=== PATIENT | male | born 1945 | race Caucasian/White ===

== ENCOUNTER 2017-10-09 09:43 | Emergency (ER) | payer MEDICARE ==
[2017-10-09 11:42] VITALS: BP 143/77
--- NOTE | 2017-10-09 12:15 | ED ---
Respiratory - HPI Summary HPI Summary: 72 yr old male with nasal congestion, cough, fever, chills, muscle aches. He has a friend and has been around kids that have influenza. He denies SOB, CP. No other complaints. - History of Current Complaint Chief Complaint: UCRespiratory Stated Complaint: FLU LIKE SYMP Time Seen by Provider: 10/09/17 12:00 Pain Intensity: 4 - Allergy/Home Medications Allergies/Adverse Reactions: Allergies Allergy/AdvReac Type Severity Reaction Status Date / Time No Known Allergies Allergy Verified 10/09/17 11:33 Home Medications: Home Medications Aspirin [Goodsense Aspirin] 325 mg PO PRN 10/09/17 [History] Ibuprofen 600 mg PO PRN 10/09/17 [History Confirmed 10/09/17] PMH/Surg Hx/FS Hx/Imm Hx - Surgical History Surgery Procedure, Year, and Place: SPLENECTOMY Infectious Disease History: Yes Infectious Disease History: Reports: Hx Shingles - A 5YO Denies: Traveled Outside the [place] in Last 30 Days - Social History Alcohol Use: Occasionally Substance Use Type: Reports: None Smoking Status (MU): Former Smoker Review of Systems Positive: Fever, Chills, Fatigue Positive: Nasal Discharge Positive: Cough Positive: Myalgia Negative: Headache All Other Systems Reviewed And Are Negative: Yes Physical Exam Triage Information Reviewed: Yes Vital Signs On Initial Exam: Initial Vitals Temp Pulse Resp BP Pulse Ox 101.9 F 102 18 143/77 93 10/09/17 11:37 10/09/17 11:37 10/09/17 11:37 10/09/17 11:37 10/09/17 11:37 Vital Signs Reviewed: Yes Appearance: Positive: Well-Appearing, No Pain Distress Skin: Positive: Warm, Skin Color Reflects Adequate Perfusion Head/Face: Positive: Normal Head/Face Inspection Eyes: Positive: EOMI ENT: Positive: Pharynx normal, Nasal congestion, TMs normal Neck: Positive: Nontender Respiratory/Lung Sounds: Positive: Clear to Auscultation, Breath Sounds Present Cardiovascular: Positive: RRR. Negative: Murmur Abdomen Description: Positive: Nontender Musculoskeletal: Positive: Strength/ROM Intact Neurological: Positive: Sensory/Motor Intact, Alert, Oriented to Person Place, Time, CN Intact II-III Psychiatric: Positive: Normal - Bill Coma Scale Best Eye Response: 4 - Spontaneous Best Motor Response: 6 - Obeys Commands Best Verbal Response: 5 - Oriented Coma Scale Total: 15 Diagnostics - Vital Signs Vital Signs Temp Pulse Resp BP Pulse Ox 10/09/17 11:37 101.9 F 102 18 143/77 93 - Laboratory Lab Results: Lab Results 10/09/17 Range/Units 11:38 Influenza A (Rapid) Negative (Negative) Influenza B (Rapid) Negative (Negative) Lab Statement: Any lab studies that have been ordered have been reviewed, and results considered in the medical decision making process. Disposition - Course Course Of Treatment: 72 yr old with influenza symptoms. Rx with tamiflu. - Diagnoses Provider Diagnoses: Influenza, Hypertension Discharge - Discharge Plan Condition: Good Disposition: HOME Prescriptions: Oseltamivir CAP* [Tamiflu CAP*] 75 mg PO BID #10 cap Patient Education Materials: Influenza (ED), Hypertension (ED) Referrals: Hudson Hyde MD [Primary Care Provider] - 2 Days
== END 2017-10-09 12:18 | disposition home or self-care (01) ==
LOC: UCCORT 09:43
DX: J11.1 Influenza due to unidentified influenza virus with other respiratory manifestations (principal); I10 Essential (primary) hypertension; Z20.828 Contact with and (suspected) exposure to other viral communicable diseases; Z87.891 Personal history of nicotine dependence
CPT/HCPCS: 87502; 99212; G0463

== ENCOUNTER 2019-08-05 14:27 | Emergency (ER) | payer MEDICARE ==
[2019-08-05 14:34] VITALS: BP 150/84
--- NOTE | 2019-08-05 15:08 | UC ---
Abdominal Pain Male HPI - HPI Summary HPI Summary: Patient presents to urgent care stating since early Thursday morning he's had left lower abdominal pain. Patient states he ate milkshake as well as turned blueberries. Patient states when he woke up 3 hours later he thought this was the cause of this pain. Patient states he had nausea but only some clear mucus came out. Patient states since this time he's continued to have a left lower quadrant pain. Patient states the pain waxes and wanes. Patient denies fevers or chills. Patient states a warm shower seemed to help the pain. Patient has not taken any analgesia. Patient denies any back pain. Patient denies any pain in his penis or testicles. Patient denies hematuria. Patient states he has not had a bowel movement in 3 days and so he took 6 200 mg of Colace around noon today. no cp, sob mild recurrent nausea, no vomiting. Patient states after that his pain intensified so he drove here. Patient states the pain has since subsided and making a 1 out of 10. Patient is on aspirin but no other anticoagulants. Patient's denies any history of stomach processes: No appendicitis, cholecystitis, diverticulitis. Patient states he has had dull pain in his left lower quadrant in the past but never been evaluated. Patient's medications is entered in the EMR by the triage nurse were reviewed this visit. - History of Current Complaint Chief Complaint: UCAbdominalPain Stated Complaint: ABD PAIN,NAUSEA Hx Obtained From: Patient Pain Intensity: 7 - Allergies/Home Medications Allergies/Adverse Reactions: Allergies Allergy/AdvReac Type Severity Reaction Status Date / Time No Known Allergies Allergy Verified 08/05/19 14:35 Home Medications: Home Medications Aspirin [Aspirin Childrens 81 MG] 81 mg PO DAILY 08/05/19 [History Confirmed ] PMH/Surg Hx/FS Hx/Imm Hx Previously Healthy: Yes Endocrine History: Dyslipidemia Cardiovascular History: Other - DVT years ago - on ASA - Surgical History Surgical History: Yes Surgery Procedure, Year, and Place: SPLENECTOMY - Family History Known Family History: Positive: Non-Contributory - Social History Occupation: Retired Lives: With Family Alcohol Use: Occasionally Substance Use Type: None Smoking Status (MU): Former Smoker When Did the Patient Quit Smoking/Using Tobacco: 50+ YRS AGO Review of Systems All Other Systems Reviewed And Are Negative: Yes Constitutional: Positive: Negative Skin: Positive: Negative Respiratory: Positive: Negative Is Patient Immunocompromised?: No Physical Exam - Summary Physical Exam Summary: Vital Signs Reviewed: Yes A+Ox3, no distress, sitting comfortably - able to climb on examination table without assistance or discomfort Eyes: Conjunctiva Clear, MARGRET. 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 Patient states he ate food that he thinks was spoiled. Patient states he woke up from sleep with nausea. Patient states pain has been intermittent. Patient states [facility]. Patient with please of nausea and had some emesis of clear fluid earlier this week but none since. Patient states he took a warm shower and warm compresses seem to help. Patient without history of such severe pain but has had lower quadrant pain in the past. Patient has not had a bowel movement in 3-4 days he took some Colace today has not produced. Patient states he has not had much flatus. Patient without a history of kidney stones. Patient denies any dysuria or symptoms. On exam vital signs are stable. Pt with elevated - BP - related to current medical condition. Triage nurse states patient was uncomfortable on her exam. The time of my exam patient states he was actually feeling okay. Patient states the pain was a 1 out of 10. Patient without a back pain. Patient with mild left lower quadrant pain on exam. However discussed with patient regarding differential which includes diverticulitis, colitis, renal colic. Recommend patient to the emergency department for further testing which will likely include labs as well as imaging. Patient requesting to go to [facility]. I called the emergency department given report to Antoine michelle, physician's surgeon assistant working the emergency department. Patient instructed to gum puller, one if his pain returned again any other concerns. Patient is understanding and comfort with plan. - Differential Dx/Clinical Impression Provider Diagnosis: Colicky LLQ abdominal pain Discharge ED - Sign-Out/Discharge Documenting (check all that apply): Patient Departure All imaging exams completed and their final reports reviewed: No Studies - Discharge Plan Condition: Stable Disposition: HOME-RECOMMEND TO ED Patient Education Materials: Acute Abdominal Pain (ED) Referrals: Hudson Hyde MD [Primary Care Provider] - Additional Instructions: The doctor that evaluated you today thinks that you need additional testing that can be completed the emergency department. It is recommended that you go directly to emergency department for further evaluation. This evaluation may include blood work or imaging. This testing will be directed and decided by the provider that evaluate you at the emergency department. If pain becomes worse, you feel lightheaded, you have uncontrolled vomiting, or you have any other concerns while you are being driven to emergency department as recommended to pullover and contact 911. - Billing Disposition and Condition Condition: STABLE Disposition: Home-Recommend to ED
--- OUTSIDE RECORDS SUMMARY | 2019-08-05 15:11 | XMS REPORT | Continuity of Care Document ---
:1945 External Reference #:[id number] Author Name Hudson Hyde (transmitted by agent of provider Shu Whitaker) Address [address] [place] [address] Problems Active Problems Provider Date Disorder of shoulder Hudson Hyde Onset: 01/28/2011 Social History Type Date Description Comments Sex Unknown ETOH Use Social Tobacco Use Start: Unknown End: Unknown Patient is a former smoker Recreational Drug Use Never Used Drugs Allergies, Adverse Reactions, Alerts Description No Known Drug Allergies Medications Active Medications SIG Qnty Indications Ordering Date Provider Aspir-Low 1 by mouth every 100tabs E78.5 Hudson Hyde 01/20/[address] Vitamin E Complete Hudson Hyde 04/14/2017 Capsules Calcium 600+D High 1 by mouth twice 100tabs M85.80 Hudson Hyde 04/14/2017 Potency a day [id number] Tablets Co Q10 Maximum 1 PO Q Day 14caps Hudson Hyde 04/14/2017 Strength 200mg Capsules Multivitamins OTC Hudson Hyde 10/25/2013 Capsules Zostavax injection as 1units Merry Hyde, 10/21/2012 ordered M.D. [id number]/0.65ML Solution Rec Immunizations CPT Code Status Date Vaccine Lot # [id number] Given 05/10/2019 Influenza Virus (Afluria) Split Virus 3 Years [id number] Of Age And Older 35836 Given 05/10/2019 Influenza Virus Vaccine, Quadrivalent, Split, Preservative Free Q2037 Given 06/02/2016 Influenza Vaccine (Fluvirin) 3 Years Of Age Or [id number] Older 86640 Given 08/14/2015 Pneumococcal Conjugate Vaccine 13 Valent For [id number] Intramuscular Use 06100 Given 10/21/2012 Zostavax Q2037 Given 05/24/2012 Influenza Vaccine (Fluvirin) 3 Years Of Age Or [id number] Older Q2036 Given 05/27/2011 Flulaval [id number] Q2036 Given 09/18/2010 Flulaval [id number] 64426 Given 09/18/2010 Pneumovax Polyvalent Inj Im [id number] 23194 Given 09/11/2010 Tetanus,Diphtheria,Adut/Adol Pertussis [id number] Vital Signs Date Vital Result Comment 06/08/2019 10:51am BP Systolic 132 mmHg BP Diastolic 80 mmHg Heart Rate 80 /min Respiratory Rate 16 /min Height 74 inches 6'2" Weight 248.00 lb BMI (Body Mass Index) 31.8 kg/m2 O2 % BldC Oximetry 95 % 05/10/2019 10:50am BP Systolic 132 mmHg BP Diastolic 82 mmHg Heart Rate 65 /min Weight 243.00 lb O2 % BldC Oximetry 90 % Results Test Date Facility Test Result H/L Range Note Lipid Panel 04/18/2019 Old DO Not Use [facility] Cholesterol 201 mg/dL High <[address] [place], [place] [id number] [phone] HDL Cholesterol 35 mg/dL Low >40 Cholesterol/HDL Ratio 5.7 CALC High <5.0 LDL Chol,Calculated 142 mg/dL High 0-100 2 Triglycerides 119 mg/dL <150 Non-HDL Cholesterol 166 mg/dL High <130 3 CBC 04/18/2019 Old DO Not Use [facility] WBC 6.9 3.8-10.8 (H/H,RBC,Indices,WBC,PLT) [address] [place], [place] [id number] [phone] RBC 4.91 mill/L 4.20-5.80 Hemoglobin 16.0 g/dL 13.2-17.1 Hematocrit 46.5 % 38.5-50.0 MCV 94.7 FL 80.0-100.0 MCH 32.6 pg 27.0-33.0 MCHC 34.4 g/dL 32.0-36.0 RDW 13.4 % 11.0-15.0 Platelet Count 263 thous/L 140-400 MPV 11.3 FL 7.5-12.5 Lipid Panel 01/06/2019 Old DO Not Use [facility] Cholesterol 217 mg/dL High <[address] [place] [address] [phone] HDL Cholesterol 38 mg/dL Low >40 Cholesterol/HDL Ratio 5.7 CALC High <5.0 LDL Chol,Calculated 152 mg/dL High 0-100 4 Triglycerides 138 mg/dL <150 Non-HDL Cholesterol 179 mg/dL High <130 5 1 FASTING 2 LDL-C is now calculated using the Peterson-Marshall calculation, which is a validated novel method providing better accuracy than the Friedewald equation in the estimation of LDL-C. Peterson SS et al.ANAI.2013;310(19):3028-0345 Desirable range <100 mg/dL for primary prevention; <70 mg/dL for patients with CHD or diabetic patients with >or= 2 CHD risk factors. 3 For patients with diabetes plus 1 major ASCVD risk factor, treating to a non-HDL-C goal of <100 mg/dL (LDL-C of <70 mg/ dL) is considered a therapeutic option. 4 LDL-C is now calculated using the Peterson-Marshall calculation, which is a validated novel method providing better accuracy than the Friedewald equation in the estimation of LDL-C. Peterson SS et al.ANAI.2013;31019):7831-0102 Desirable range <100 mg/dL for primary prevention; <70 mg/dL for patients with CHD or diabetic patients with >or= 2 CHD risk factors. For additional information, please refer to http://education.Bl[employer].Brainrack/faq/KCF459(This link is being provided for informational/educational purposes only.) 5 For patients with diabetes plus 1 major ASCVD risk factor, treating to a non-HDL-C goal of <100 mg/dL (LDL-C of <70 mg/ dL) is considered a therapeutic option. Procedures Date Code Description Status 01/11/2015 868493621 Bone Mineral Density Test Completed 01/09/2011 22346281 Colonoscopy Completed Medical Devices Description No Information Available Encounters Type Date Location Provider Dx Diagnosis Office Visit 05/10/2019 10:45a Main Office Hudson Hyde M79.10 Myalgia, unspecified site T78.40xD Allergy, unspecified, subsequent encounter Z23 Encounter for immunization Office Visit 01/20/2019 11:15a Main Office Rasheed Hydel E78.5 Hyperlipidemia, unspecified G47.30 Sleep apnea, unspecified I11.9 Hypertensive heart disease without heart failure R73.01 Impaired fasting glucose N40.0 Benign prostatic hyperplasia without lower urinry tract symp I65.23 Occlusion and stenosis of bilateral carotid arteries M85.80 Oth disrd of bone density and structure, unspecified site Assessments Date Code Description Provider 05/10/2019 M79.10 Myalgia, unspecified site Barrett Hudson 05/10/2019 T78.40xD Allergy, unspecified, subsequent encounter Barrett Hudson 05/10/2019 Z23 Encounter for immunization Barrett Hudson 01/20/2019 E78.5 Hyperlipidemia, unspecified Gauss, Hudson 01/20/2019 G47.30 Sleep apnea, unspecified Gajames, Hudson 01/20/2019 I11.9 Hypertensive heart disease without heart failure Gajames Hudson 01/20/2019 R73.01 Impaired fasting glucose Barrett Hudson 01/20/2019 N40.0 Benign prostatic hyperplasia without lower urinary Gauss, Hudson tract symptoms 01/20/2019 I65.23 Occlusion and stenosis of bilateral carotid arteries Barrett Hudson 01/20/2019 M85.80 Other specified disorders of bone density and Gauss, Hudson structure, unspecified site Plan of Treatment 05/10/2019 - Elizabet Hyde79.10 Myalgia, unspecified siteT78.40xD Allergy, unspecified, subsequent encounterComments:MYALGIA FROM ALL [id number] Encounter for immunization Functional Status Description No Information Available Mental Status Description No Information Available Referrals Description No Information Available
--- OUTSIDE RECORDS SUMMARY | 2019-08-05 15:11 | XMS REPORT | Continuity of Care Document ---
:1945 External Reference #:[id number] Author Name Hudson Hyde (transmitted by agent of provider Trang Antunez) Address [address] [place] [address] Problems Active Problems Provider Date Disorder of shoulder Hudson Hyde Onset: 01/28/2011 Social History Type Date Description Comments Sex Unknown ETOH Use Social Tobacco Use Start: Unknown End: Unknown Patient is a former smoker Recreational Drug Use Never Used Drugs Allergies, Adverse Reactions, Alerts Description No Known Drug Allergies Medications Active Medications SIG Qnty Indications Ordering Provider Date [facility] Natural Fish Oil Hudson Hyde 07/14/2019 1000mg Capsules Aspir-Low 1 by mouth 100tabs E78.5 Hudson Hyde 01/20/[address] every day Vitamin E Complete Hudson Hyde 04/14/2017 Capsules Calcium 600+D High 1 by mouth 100tabs M85.80 Hudson Hyde 04/14/2017 Potency twice a day [id number] Tablets Co Q10 Maximum Strength 1 PO Q Day 14caps Hudson Hyde 04/14/2017 200mg Capsules Multivitamins OTC Hudson Hyde 10/25/2013 Capsules Immunizations CPT Code Status Date Vaccine Lot # [id number] Given 05/10/2019 Influenza Virus (Quadrivalent)Splitvirus 3 [id number] Years Of Age And Older 27380 Given 05/10/2019 Influenza Virus Vaccine, Quadrivalent, Split, Preservative Free Q2037 Given 06/02/2016 Influenza Vaccine (Fluvirin) 3 Years Of Age Or [id number] Older 40959 Given 08/14/2015 Pneumococcal Conjugate Vaccine 13 Valent For [id number] Intramuscular Use 58723 Given 10/21/2012 Zostavax Q2037 Given 05/24/2012 Influenza Vaccine (Fluvirin) 3 Years Of Age Or [id number] Older Q2036 Given 05/27/2011 Flulaval [id number] Q2036 Given 09/18/2010 Flulaval [id number] 08687 Given 09/18/2010 Pneumovax Polyvalent Inj Im [id number] 43505 Given 09/11/2010 Tetanus,Diphtheria,Adut/Adol Pertussis [id number] Vital Signs Date Vital Result Comment 07/14/2019 10:13am BP Systolic 158 mmHg BP Diastolic 70 mmHg Heart Rate 74 /min Respiratory Rate 16 /min Weight 248.00 lb 06/08/2019 10:51am BP Systolic 132 mmHg BP Diastolic 80 mmHg Heart Rate 80 /min Respiratory Rate 16 /min Height 74 inches 6'2" Weight 248.00 lb BMI (Body Mass Index) 31.8 kg/m2 O2 % BldC Oximetry 95 % Results Test Acquired Date Facility Test Result H/L Range Note TSH+Free T4 06/30/2019 [facility] TSH 1.71 mIU/L Normal 0.40-4.[address] [place] [address] [phone] T4, Free 1.1 ng/dL Normal 0.8-1.8 Laboratory test 06/30/2019 [facility] PSA, Total 1.7 ng/mL Normal < Or = [address] [place] [address] [phone] Vitamin 06/30/2019 [facility] Vitamin B12 574 pg/mL Normal 200- 1100 B12/Folate, [address] [place] [address] [phone] Folate, Serum 13.0 ng/mL Normal 2 Laboratory test 06/30/2019 [facility] Enhanced PDF PDF IMAGE finding [address] [address] [id number] [phone] Lipid Panel 04/18/2019 Cholesterol 201 mg/dL High <199 3 HDL Cholesterol 35 mg/dL Low >40 Cholesterol/HDL Ratio 5.7 CALC High <5.0 LDL Chol,Calculated 142 mg/dL High 0-100 4 Triglycerides 119 mg/dL <150 Non-HDL Cholesterol 166 mg/dL High <130 5 CBC (H/H,RBC,Indices,WBC,PLT) 04/18/2019 WBC 6.9 thous/L 3.8-10.8 RBC 4.91 mill/L 4.20-5.80 Hemoglobin 16.0 g/dL 13.2-17.1 Hematocrit 46.5 % 38.5-50.0 MCV 94.7 FL 80.0-100.0 MCH 32.6 pg 27.0-33.0 MCHC 34.4 g/dL 32.0-36.0 RDW 13.4 % 11.0-15.0 Platelet Count 263 thous/L 140-400 MPV 11.3 FL 7.5-12.5 1 The total PSA value from this assay system is standardized against the WHO standard. The test result will be approximately 20% lower when compared to the equimolar-standardized total PSA ([place]). Comparison of serial PSA results should be interpreted with this fact in mind. This test was performed using the Siemens chemiluminescent method. Values obtained from different assay methods cannot be used interchangeably. PSA levels, regardless of value, should not be interpreted as absolute evidence of the presence or absence of disease. 2 Reference Range Low: <3.4 Borderline: 3.4-5.4 Normal: >5.4 3 FASTING 4 LDL-C is now calculated using the Peterson-Marshall calculation, which is a validated novel method providing better accuracy than the Friedewald equation in the estimation of LDL-C. Peterson SS et al.ANAI.2013;310(19):5576-8442 Desirable range <100 mg/dL for primary prevention; <70 mg/dL for patients with CHD or diabetic patients with >or= 2 CHD risk factors. 5 For patients with diabetes plus 1 major ASCVD risk factor, treating to a non-HDL-C goal of <100 mg/dL (LDL-C of <70 mg/ dL) is considered a therapeutic option. Procedures Date Code Description Status 07/05/2019 74951 Non-Invcorrotid/Comp /Bilat Study Completed 07/04/2019 56177 Echocardiography Completed 06/30/2019 93463 Spirometry Graphic Record/Max Voluntary Vent Completed 06/30/2019 89174 EKG-Tracing & Report Completed 06/29/2019 66294 PVR-Atrerial Study Completed 06/29/2019 55300 Holter Monitor Office Completed 01/11/2015 776473557 Bone Mineral Density Test Completed 01/09/2011 70462546 Colonoscopy Completed Medical Devices Description No Information Available Encounters Type Date Location Provider Dx Diagnosis Office Visit 06/08/2019 11:00a Main Office Hudson Hyde M79.10 Myalgia, unspecified site E78.5 Hyperlipidemia, unspecified G47.30 Sleep apnea, unspecified I11.9 Hypertensive heart disease without heart failure R73.01 Impaired fasting glucose N40.0 Benign prostatic hyperplasia without lower urinry tract symp E55.9 Vitamin D deficiency, unspecified E66.09 Other obesity due to excess calories I34.0 Nonrheumatic mitral (valve) insufficiency M81.0 Age-related osteoporosis w/o current pathological fracture M19.90 Unspecified osteoarthritis, unspecified site R53.82 Chronic fatigue, unspecified Office Visit 05/10/2019 10:45a Main Office Hudson Hyde M79.10 Myalgia, unspecified site T78.40xD Allergy, unspecified, subsequent encounter Z23 Encounter for immunization Office Visit 01/20/2019 11:15a Main Office Hudson Hyde E78.5 Hyperlipidemia, unspecified G47.30 Sleep apnea, unspecified I11.9 Hypertensive heart disease without heart failure R73.01 Impaired fasting glucose N40.0 Benign prostatic hyperplasia without lower urinry tract symp I65.23 Occlusion and stenosis of bilateral carotid arteries M85.80 Oth disrd of bone density and structure, unspecified site Assessments Date Code Description Provider 07/05/2019 I65.23 Occlusion and stenosis of bilateral carotid arteries Hudson Hyde 07/04/2019 I34.0 Nonrheumatic mitral (valve) insufficiency Hudson Hyde 06/30/2019 E78.2 Mixed hyperlipidemia Hudson Hyde 06/30/2019 R06.02 Shortness of breath Hudson Hyde 06/30/2019 J44.9 Chronic obstructive pulmonary disease, unspecified Rasheed Hydel 06/30/2019 R05 Cough Hudson Hyde 06/29/2019 R00.2 Palpitations Rasheed Hydel 06/29/2019 I73.9 Peripheral vascular disease, unspecified Rasheed Hydel 06/08/2019 M79.10 Myalgia, unspecified site Gauss, Hudson 06/08/2019 E78.5 Hyperlipidemia, unspecified Gauss, Hudson 06/08/2019 G47.30 Sleep apnea, unspecified Gauss, Hudson 06/08/2019 I11.9 Hypertensive heart disease without heart failure Gauss, Hudson 06/08/2019 R73.01 Impaired fasting glucose Gauss, Hudson 06/08/2019 N40.0 Benign prostatic hyperplasia without lower urinary Gauss, Hudson tract symptoms 06/08/2019 E55.9 Vitamin D deficiency, unspecified Gauss, Hudson 06/08/2019 E66.09 Other obesity due to excess calories Gauss, Hudson 06/08/2019 I34.0 Nonrheumatic mitral (valve) insufficiency Gauss, Hudson 06/08/2019 M81.0 Age-related osteoporosis without current pathological Gauss , Hudson fracture 06/08/2019 M19.90 Unspecified osteoarthritis, unspecified site Gauss, Hudson 06/08/2019 R53.82 Chronic fatigue, unspecified Gauss, Hudson 05/10/2019 M79.10 Myalgia, unspecified site Gauss, [facility] 05/10/2019 T78.40xD Allergy, unspecified, subsequent encounter Gauss, [facility] 05/10/2019 Z23 Encounter for immunization Juan Ramonuss, [facility] 01/20/2019 E78.5 Hyperlipidemia, unspecified Gauss, [facility] 01/20/2019 G47.30 Sleep apnea, unspecified Gauss, Hudson 01/20/2019 I11.9 Hypertensive heart disease without heart failure Gauss, Hudson 01/20/2019 R73.01 Impaired fasting glucose Gauss, Hudson 01/20/2019 N40.0 Benign prostatic hyperplasia without lower urinary Gauss, Hudson tract symptoms 01/20/2019 I65.23 Occlusion and stenosis of bilateral carotid arteries Gauss , Hudson 01/20/2019 M85.80 Other specified disorders of bone density and Gauss, Hudson structure, unspecified site Plan of Treatment No Information Available Functional Status Description No Information Available Mental Status Description No Information Available Referrals Description No Information Available
--- OUTSIDE RECORDS SUMMARY | 2019-08-05 15:11 | XMS REPORT | Continuity of Care Document ---
:1945 External Reference #:[id number] Author Name Hudson Hyde (transmitted by agent of provider Erin Mathias) Address [address] [place] [address] Problems Active Problems Provider Date Disorder of [...] M85.80 Hudson Hyde 04/14/2017 Potency a day [id number] Tablets Co Q10 Maximum 1 PO Q Day 14caps Hudson Hyde 04/14/2017 Strength 200mg Capsules Multivitamins OTC Hudson Hyde 10/25/2013 Capsules Zostavax injection as 1units Merry Hyde, 10/21/2012 ordered M.D. 94937Agn/0.65ML Solution Rec Immunizations CPT Code Status Date Vaccine Lot # Q2035 Given 05/10/2019 Influenza Virus (Afluria) Split Virus 3 Years [id number] Of Age And Older 93177 Given 05/10/2019 Influenza Virus Vaccine, Quadrivalent, Split, Preservative Free Q2037 Given 06/02/2016 Influenza Vaccine (Fluvirin) 3 Years Of Age Or [id number] Older 37952 Given 08/14/2015 Pneumococcal Conjugate Vaccine 13 Valent For [id number] Intramuscular Use 24410 Given 10/21/2012 Zostavax Q2037 Given 05/24/2012 Influenza Vaccine (Fluvirin) 3 Years Of Age Or [id number] Older Q2036 Given 05/27/2011 Flulaval [id number] Q2036 Given 09/18/2010 Flulaval [id number] 78247 Given 09/18/2010 Pneumovax Polyvalent Inj Im [id number] 63989 Given 09/11/2010 Tetanus,Diphtheria,Adut/Adol Pertussis [id number] Vital Signs Date Vital Result Comment 06/08/2019 [...] Cholesterol 201 mg/dL High <[address] [place], [place] [id number] [phone] HDL Cholesterol 35 mg/dL Low >40 Cholesterol/HDL Ratio 5.7 CALC High <5.0 LDL Chol,Calculated 142 mg/dL High 0-100 2 Triglycerides 119 mg/dL <150 Non-HDL Cholesterol 166 mg/dL High <130 3 CBC 04/18/2019 Old DO Not Use [facility] WBC 6.9 3.8-10.8 (H/H,RBC,Indices,WBC,PLT) [address] thous/L [place], [place] [id number] [phone] RBC 4.91 mill/L 4.20-5.80 Hemoglobin 16.0 g/dL 13.2-17.1 Hematocrit 46.5 % 38.5-50.0 MCV 94.7 FL 80.0-100.0 MCH 32.6 pg 27.0-33.0 MCHC 34.4 g/dL 32.0-36.0 RDW 13.4 % 11.0-15.0 Platelet Count 263 thous/L 140-400 MPV 11.3 FL 7.5-12.5 Lipid Panel 01/06/2019 Old DO Not Use [facility] Cholesterol 217 mg/dL High <199 [address] [place] [address] [phone] HDL Cholesterol 38 mg/dL Low >40 Cholesterol/HDL Ratio 5.7 CALC High <5.0 LDL Chol,Calculated 152 mg/dL High 0-100 4 Triglycerides 138 mg/dL <150 Non-HDL Cholesterol 179 mg/dL High <130 5 1 FASTING 2 LDL-C is now calculated using the Peterson-Marshall calculation, which is a validated novel method providing better accuracy than the Friedewald equation in the estimation of LDL-C. Peterson SS et al.ANAI.2013;310(19):0044-1645 Desirable range <100 mg/dL for primary prevention; [...] the estimation of LDL-C. Peterson SS et al.ANAI.2013;31019):6971-7339 Desirable range <100 mg/dL for primary prevention; <70 mg/dL for patients with CHD or diabetic patients with >or= 2 CHD risk factors. For additional information, please refer to http://education.Mandiant/faq/RWJ683(This link is being provided for informational/educational purposes only.) 5 For patients with diabetes plus 1 major ASCVD risk factor, treating to a non-HDL-C goal of <100 mg/dL (LDL-C of <70 mg/ dL) is considered a therapeutic option. Procedures Date Code Description Status 01/11/2015 643409464 Bone Mineral Density Test Completed 01/09/2011 [id number] Colonoscopy Completed Medical Devices Description No Information [...] unspecified Office Visit 05/10/2019 10:45a Main Office Gauss, Hudson M79.10 Myalgia, unspecified site T78.40xD Allergy, unspecified, subsequent encounter Z23 Encounter for immunization Office Visit 01/20/2019 11:15a Main Office Gajames, Hudson E78.5 Hyperlipidemia, unspecified G47.30 Sleep apnea, unspecified I11.9 Hypertensive heart disease without heart failure R73.01 Impaired fasting glucose N40.0 Benign prostatic hyperplasia without lower urinry tract symp I65.23 Occlusion and stenosis of bilateral carotid arteries M85.80 Ot disrd of bone density and structure, unspecified site Assessments Date Code Description Provider 06/08/2019 M79.10 Myalgia, unspecified site Gauss, Hudson [...] Gauss, Hudson 05/10/2019 M79.10 Myalgia, unspecified site Hudson Hyde 05/10/2019 T78.40xD Allergy, unspecified, subsequent encounter Rasheed Hydel 05/10/2019 Z23 Encounter for immunization Hudson Hyde 01/20/2019 E78.5 Hyperlipidemia, unspecified Hudson Hyde 01/20/2019 G47.30 Sleep apnea, unspecified Hudson Hyde 01/20/2019 I11.9 Hypertensive heart disease without heart failure Rasheed Hydel 01/20/2019 R73.01 Impaired fasting glucose Rasheed Hydel 01/20/2019 N40.0 Benign prostatic hyperplasia without lower urinary Barrett Hudson tract symptoms 01/20/2019 I65.23 Occlusion and stenosis of bilateral carotid arteries Rasheed Hydel 01/20/2019 M85.80 Other specified disorders of bone density and Hudson Hyde structure, unspecified site Plan of Treatment Future Appointment(s):06/30/2019 9:15 am - Nurse at Main Cfvuno3706/29/2019 8: 15 am - Nurse at Main Jjlsbe6407/04/2019 3:30 pm - Ultrasound at Main [id number] 10:15 am - Hudson Hyde at Main Wlaoaz2706/08/2019 - Elizabet Hyde79.10 Myalgia, unspecified siteE78.5 Hyperlipidemia, unspecifiedComments:Counselled on role of diet and excersize and importance to keep compliance with medication if prescribed and side effects. The importance of routine monitoring of blood lipids and liver tests to managetreatment and avoid side effects were discussed. Usual follow up is 3 months for LFT and Lipid profile. Patient education including dietary guidelines and materials provided.G47.30 Sleep apnea , unspecifiedComments:Discussed role of obesity and necessity of weight reduction.I11.9 Hypertensive heart disease without heart failureComments:CONT. TO MONITOR BP, CONT. LOW SALT DIET Discussed lifestyle factors and role of diet and excerns incontrol of disease and treatment goals and targets. Medication side effects and compliance issues addressed as indicated. The importance of ongoing self monitoring of BP and the symptoms of complications such as TIA, CVA and AMI reviewed. The importance of reporting changes in between visits and side effects stressed. monitoring of patient provided BP checks and laboratory tests related to medicationreviewed. Discussed lifestyle factors and role of diet and excerns in control of disease and treatment goals and targets. Medication side effects and compliance issues addressed as indicated. The importance of ongoing self monitoring of BP and the symptoms of complications such as TIA, CVA and AMI reviewed. The importance of reporting changes in between visits and side effects stressed. monitoring of patient provided BP checks and laboratory tests related to medication reviewed.R73.01 Impaired fasting glucoseComments:diet and azkjnwyP79.0 Benign prostatic hyperplasia without lower urinary tract symptomsComments:yearly digital examyearly psaSymptoms and signs reviewed and therapy such as medication, vitamins, diet supplements and their risks and benefits discussed. Symptom progression and referral to urology as appropriate for symptom progression and severity discussed and ordered. The importance of medication compliance when appropriate discussed and the effects of other medications such as antihistamines and OTC cold medicines considered and discussed with patient. Lab work as appropriate and follow up symptomatically and with [facility] yearly arrangedyearly digital examyearly psaSymptoms and signs reviewed and therapy such as medication, vitamins, diet supplements and their risks and benefits discussed. Symptom progression and referral to urology as appropriate for symptom progression and severity discussedand ordered. The importance of medication compliance when appropriate discussed and the effects of other medications such as antihistamines and OTC cold medicines considered and discussed with patient.Lab work as appropriate and follow up symptomatically and with [facility] yearly pqjjamlhT96.9 Vitamin D deficiency, ggsyipiymgjJ84.09 Other obesity due to excess caloriesComments:Discussed health effects of obesity and healthy diet choices. Effect on other diseases and interaction of dietary factors stressed. Weight loss options discussed and information on community resources,various weight loss strategies and popular diets reviewed.I34.0 Nonrheumatic mitral ( valve) insufficiencyComments:Issues of symptoms and aggravating lifestyle factors such as sleep, stress and dietary choices discussed. Symptoms and medication treatment and compliance and side effects discussed as needed. Need forSBE prophalaxis with antibiotics addressed and discussed where indicated. Follow up Echocardiogram as required.Discussed valvular pathology and need if indicated for antibiotic prophylaxis to prevent S.B.E. Medication compliance and side effects issues addressed. Follow up echocardiogram as warranted.Results of 2D echo and other testing reviewed and discussed with patient possible etiologies, progression prognosis and need for prophylactic antibiotics before dental procedures if warranted for S.B.E. prophylaxis. Routine follow up/ surveillance planned.M81.0 Age-related osteoporosis without current pathological fractureComments:Discussed recommended goal of 1200-1500MG Calcium and 400 IU Vit D with supplemental MG intake and dietary and supplemental ways to achieve goals. Fall prevention and impact lowering discussed and gaitstability issues addressed. Regular exercise as tolerated with weight bearing role discussed. Necessity of compliance with medications/ side effects and importance of monitoring for further treatment with DXA addressed. Vertebral Fracture Assessment reviewed Discussed recommended goal of 1200-1500MG Calcium and 400 IU Vit D with supplemental MG intake and dietary and supplemental ways to achieve goals. Fall prevention and impact lowering discussed and gait stability issues addressed. Regular exercise as tolerated with weight bearing role discussed. Necessity of compliance with medications/ side effects and importance of monitoring for further treatment with DXA addressed. Vertebral Fracture Assessment jekbgwdnG32.90 Unspecified osteoarthritis, unspecified siteComments:Discussed treatment strategies including role of supplements such as glucosamine, regular exercise, external therapies such as warm water and various OTC medications including Tylenol and Capsin ointments. Discussed surgery and joint replacement role for management of advanced symptoms and options like joint injections of corticosteroids and hyaluronidase. Pt encouraged to seek further information onmedication side effects including increased stroke and heart attack risk and arthritis information from reliable sources such as [employer].R53.82 Chronic fatigue, unspecifiedComments:Discussed importance of proper nutrition, vitamins and rest and interplay of stress and anxiety withsymptom flares. Appropriate medication with monitoring, need for compliance, side effects and followup discussed and care plan implemented. Functional Status Description No Information Available Mental Status Description No Information Available Referrals Description No Information Available
--- OUTSIDE RECORDS SUMMARY | 2019-08-05 15:11 | XMS REPORT | Continuity of Care Document ---
:1945 External Reference #:[id number] Author Name Hudson Hyde (transmitted by agent of provider Erin Mathias) Address [address] [place] [address] Problems Active Problems Provider Date Disorder of shoulder Hudson Hyde Onset: 01/28/2011 Social History Type Date Description Comments Sex Unknown ETOH Use Social Recreational Drug Use Never Used Drugs Tobacco Use Start: Unknown Patient has never smoked Smoking Status Reviewed: 07/14/19 Patient has never smoked Allergies, Adverse Reactions, Alerts Description No Known Drug Allergies Medications Active Medications SIG Qnty Indications Ordering Provider Date [facility] Oil Hudson Hyde 07/14/2019 1000mg Capsules Aspir-Low 1 by mouth 100tabs E78.5 Hudson Hyde 01/20/[address] every day Vitamin E Complete Hudson Hyde 04/14/2017 Capsules Calcium 600+D High 1 by mouth 100tabs M85.80 Hudson Hyde 04/14/2017 Potency twice a day 090-195uy-Bwpt Tablets Co Q10 Maximum Strength 1 PO Q Day 14caps Hudson Hyde 04/14/2017 200mg Capsules Multivitamins OTC Hudson Hyde 10/25/2013 Capsules Immunizations CPT Code Status Date Vaccine Lot # [id number] Given 05/10/2019 Influenza Virus (Quadrivalent)Splitvirus 3 [id number] Years Of Age And Older 52897 Given 05/10/2019 Influenza Virus Vaccine, Quadrivalent, Split, Preservative Free Q2037 Given 06/02/2016 Influenza Vaccine (Fluvirin) 3 Years Of Age Or [id number] Older 72752 Given 08/14/2015 Pneumococcal Conjugate Vaccine 13 Valent For [id number] Intramuscular Use 15576 Given 10/21/2012 Zostavax Q2037 Given 05/24/2012 Influenza Vaccine (Fluvirin) 3 Years Of Age Or [id number] Older Q2036 Given 05/27/2011 Flulaval [id number] Q2036 Given 09/18/2010 Flulaval [id number] 35268 Given 09/18/2010 Pneumovax Polyvalent Inj Im [id number] 37062 Given 09/11/2010 Tetanus,Diphtheria,Adut/Adol Pertussis [id number] Vital Signs Date Vital Result Comment 07/14/2019 10:13am BP Systolic 138 mmHg BP Diastolic 84 mmHg Heart Rate 74 /min Respiratory Rate 16 /min Weight 248.00 lb 06/08/2019 10:51am BP Systolic 132 mmHg BP Diastolic 80 mmHg Heart Rate 80 /min Respiratory Rate 16 /min Height 74 inches 6'2" Weight 248.00 lb BMI (Body Mass Index) 31.8 kg/m2 O2 % BldC Oximetry 95 % Results Test Acquired Date Facility Test Result H/L Range Note TSH+Free T4 06/30/2019 [facility] TSH 1.71 mIU/L Normal 0.40-4.[address] [place] [address] [phone] T4, Free 1.1 ng/dL Normal 0.8-1.8 Laboratory test 06/30/2019 [facility] PSA, Total 1.7 ng/mL Normal < Or = [address] [place] [address] [phone] Vitamin 06/30/2019 [facility] Vitamin B12 574 pg/mL Normal 200- 1100 B12/Folate, [address] [address] [phone] Folate, Serum 13.0 ng/mL Normal 2 Laboratory test 06/30/2019 [facility] Enhanced PDF PDF IMAGE finding [address] [place] [address] [id number] [phone] Lipid Panel 04/18/2019 Cholesterol 201 mg/dL High [...] compared to the equimolar-standardized total PSA (Germán Katharina). Comparison of serial PSA results should be [...] 4 LDL-C is now calculated using the Peterson-Joanna calculation, which is a validated novel method providing better accuracy than the Friedewald equation in the estimation of LDL-C. Peterson SS et al.ANAI.2013;310(19):6010-1735 Desirable range <100 mg/dL for primary prevention; <70 mg/dL for patients with CHD or diabetic patients with >or= 2 CHD risk factors. 5 For patients with diabetes plus 1 major ASCVD risk factor, treating to a non-HDL-C goal of <100 mg/dL (LDL-C of <70 mg/ dL) is considered a therapeutic option. Procedures Date Code Description Status 07/05/2019 72115 Non-Invcorrotid/Comp /Bilat Study Completed 07/04/2019 89974 Echocardiography Completed 06/30/2019 75560 Spirometry Graphic Record/Max Voluntary Vent Completed 06/30/2019 81786 EKG-Tracing & Report Completed 06/29/2019 96267 PVR-Atrerial Study Completed 06/29/2019 05603 Holter Monitor Office Completed 01/11/2015 029409581 Bone Mineral Density Test Completed 01/09/2011 19811239 Colonoscopy Completed Medical Devices Description No Information [...] unspecified site Assessments Date Code Description Provider 07/14/2019 I65.23 Occlusion and stenosis of bilateral carotid arteries Hudson Hyde 07/14/2019 I34.0 Nonrheumatic mitral (valve) insufficiency Hudson Hyde 07/14/2019 E78.5 Hyperlipidemia, unspecified Hudson Hyde 07/14/2019 J44.9 Chronic obstructive pulmonary disease, unspecified Hudson Hyde 07/14/2019 I73.9 Peripheral vascular disease, unspecified Hudson Hyde 07/14/2019 M79.10 Myalgia, unspecified site Hudson Hyde 07/14/2019 G47.30 Sleep apnea, unspecified Hudson Hyde 07/14/2019 I11.9 Hypertensive heart disease without heart failure Gauss, Hudson 07/14/2019 R73.01 Impaired fasting glucose Gauss, [facility] 07/14/2019 E55.9 Vitamin D deficiency, unspecified Gauss, Hudson 07/14/2019 E66.09 Other obesity due to excess calories Gauss, [facility] 07/14/2019 M19.90 Unspecified osteoarthritis, unspecified site Gauss, [facility] 07/14/2019 R53.82 Chronic fatigue, unspecified Gauss, [facility] 07/14/2019 R94.31 Abnormal electrocardiogram [ECG] [EKG] Gauss, [facility] 07/05/2019 I65.23 Occlusion and stenosis of bilateral carotid arteries Gauss , [facility] 07/04/2019 I34.0 Nonrheumatic mitral (valve) insufficiency Gauss, [facility] 06/30/2019 E78.2 Mixed hyperlipidemia Gauss, [facility] 06/30/2019 R06.02 Shortness of breath Gauss, [facility] 06/30/2019 J44.9 Chronic obstructive pulmonary disease, unspecified Gauss, [facility] 06/30/2019 R05 Cough Gauss, [facility] 06/29/2019 R00.2 Palpitations Gauss, [facility] 06/29/2019 I73.9 Peripheral vascular disease, unspecified Gauss, [facility] 06/08/2019 M79.10 Myalgia, unspecified site Gauss, [facility] 06/08/2019 E78.5 Hyperlipidemia, unspecified Gauss, [facility] 06/08/2019 G47.30 Sleep apnea, unspecified Gauss, [facility] 06/08/2019 I11.9 Hypertensive heart disease without heart failure Gauss, [facility] 06/08/2019 R73.01 Impaired fasting glucose Gauss, [facility] 06/08/2019 N40.0 Benign prostatic hyperplasia without lower urinary [facility], [facility] tract symptoms 06/08/2019 E55.9 Vitamin D deficiency, unspecified Gauss, [facility] 06/08/2019 E66.09 Other obesity due to excess calories [facility], [facility] 06/08/2019 I34.0 Nonrheumatic mitral (valve) insufficiency Gauss, [facility] 06/08/2019 M81.0 Age-related osteoporosis without current pathological Gauss , Hudson fracture 06/08/2019 M19.90 Unspecified osteoarthritis, unspecified site Gauss, Hudson 06/08/2019 R53.82 Chronic fatigue, unspecified Hudson Hyde 05/10/2019 M79.10 Myalgia, unspecified site Hudson Hyde 05/10/2019 T78.40xD Allergy, unspecified, subsequent encounter Rasheed Hydel 05/10/2019 Z23 Encounter for immunization Rasheed Hydel 01/20/2019 E78.5 Hyperlipidemia, unspecified Hudson Hyde 01/20/2019 G47.30 Sleep apnea, unspecified Hudson Hyde 01/20/2019 I11.9 Hypertensive heart disease without heart failure Rasheed Hydel 01/20/2019 R73.01 Impaired fasting glucose Rasheed Hydel 01/20/2019 N40.0 Benign prostatic hyperplasia without lower urinary Hudson Hyde tract symptoms 01/20/2019 I65.23 Occlusion and stenosis of bilateral carotid arteries Rasheed Hydel 01/20/2019 M85.80 Other specified disorders of bone density and Hudson Hyde structure, unspecified site Plan of Treatment Future Appointment(s):10/12/2019 9:00 am - [facility] at [facility] Jttrbl0910/17/2019 10: 15 am - [facility] Hyde [facility] [id number]/14/2019 - Rasheed HydelI65.23 Occlusion and stenosis of bilateral carotid arteriesComments:Discussed role of life style choices in dietary fats and exercise plays on evolution of [place] disease and importance of controlling cholesterol. Medications role and side effects in disease progression prevention discussed and need for compliance with prescribed treatment. Follow up testing for progression such as ultrasound surveillance ndvwribbW74.0 Nonrheumatic mitral (valve) insufficiencyComments: Issues of symptoms and aggravating lifestyle factors such [...] for S.B.E. prophylaxis. Routine follow up/ surveillance planned.E78.5 Hyperlipidemia, unspecifiedComments:Counselled on role of diet and excersize and importance to keep compliance with medication if prescribed and side effects. The importance of routine monitoring of blood lipids and liver tests to managetreatment and avoid side effects were discussed. Usual follow up is 3 months for LFT and Lipid profile. Patient education including dietary guidelines and materials provided.J44.9 Chronic obstructive pulmonary disease, unspecifiedComments:Discussed importance of excersize and avoidance of all smoke. Enviromental factors that can spark exacerbations reviewed. The necessity of reporting any changes in condition, early intervention in exacerbations and proper useand the importance of compliance with medications. Reports if applicable of home care providers, and equipment suppliers and Respiratory Therapy reviewed.I73.9 Peripheral vascular disease, unspecifiedComments:Reviewed diagnostic testing and discussed pertinent lifestyle issues such as smoking cessation, the importance of diet and exercise and the possibility of certain medications worsening symptoms. The role of medications to treat this disease, costs and benefits discussed. exercise stressed. The need tomonitor feet for skin breakdown and injury and the need for further surveillance and PVR tlqlkskrxM31.10 Myalgia, unspecified siteG47.30 Sleep apnea, unspecifiedComments:Discussed role of obesity and necessity of [...] to medication reviewed.R73.01 Impaired fasting glucoseComments:diet and zcuhamwM49.9 Vitamin D deficiency, paxqrgvnlfuO30.09 Other obesity due to excess caloriesComments: Discussed health effects of obesity and healthy diet choices. Effect on other diseases and interaction of dietary factors stressed. Weight loss options discussed and information on community resources,various weight loss strategies and popular diets reviewed.M19.90 Unspecified osteoarthritis, unspecified siteComments:Discussed treatment strategies including [...] effects and followup discussed and care plan implemented.R94.31 Abnormal electrocardiogram [ECG] [EKG]Comments:EKG and previous compared and reviewed. Disussed with patient abnormalities and significance. Appropriate follow up test(s) such as echocardiogram and EKG ordered and reviewed.AllNew Medication:[facility] Oil 1000 mg - Functional Status Description No Information Available Mental Status Description No Information Available Referrals Description No Information Available
--- OUTSIDE RECORDS SUMMARY | 2019-08-05 15:11 | XMS REPORT | Continuity of Care Document ---
:1945 External Reference #:[id number] Author Name Hudson Hyde (transmitted by agent of provider Trang Antunez) Address [address] [place] [address] Problems Active Problems Provider Date Disorder of [...] M85.80 Hudson Hyde 04/14/2017 Potency a day 344-734ut-Idcw Tablets Co Q10 Maximum 1 PO Q Day 14caps Hudson Hyde 04/14/2017 Strength 200mg Capsules Multivitamins OTC Hudson Hyde 10/25/2013 Capsules Zostavax injection as 1units Merry Hyde, 10/21/2012 ordered M.D. 25159Ojq/0.65ML Solution Rec Immunizations CPT Code Status Date Vaccine Lot # Q2035 Given 05/10/2019 Influenza Virus (Quadrivalent)Splitvirus 3 [id number] Years Of Age And Older [address] Given 05/10/2019 Influenza Virus Vaccine, Quadrivalent, Split, Preservative Free Q2037 Given 06/02/2016 Influenza Vaccine (Fluvirin) 3 Years Of Age Or [id number] Older 52070 Given 08/14/2015 Pneumococcal Conjugate Vaccine 13 Valent For [id number] Intramuscular Use 30402 Given 10/21/2012 Zostavax Q2037 Given 05/24/2012 Influenza Vaccine (Fluvirin) 3 Years Of Age Or [id number] Older Q2036 Given 05/27/2011 Flulaval [id number] Q2036 Given 09/18/2010 Flulaval [id number] 59889 Given 09/18/2010 Pneumovax Polyvalent Inj Im 0658z 85786 Given 09/11/2010 Tetanus,Diphtheria,Adut/Adol Pertussis [id number] Vital Signs Date Vital Result Comment 06/08/2019 [...] % BldC Oximetry 90 % Results Test Acquired Date Facility Test Result H/L Range Note TSH+Free T4 06/30/2019 [facility] TSH 1.71 mIU/L Normal 0.40-4.[address] [place] [address] [phone] T4, Free 1.1 ng/dL Normal 0.8-1.8 Laboratory test 06/30/2019 [facility] PSA, Total 1.7 ng/mL Normal < Or = [address] [place] [address] [phone] Vitamin 06/30/2019 [facility] Vitamin B12 574 pg/mL Normal 200- 1100 B12/Folate, [address] [address] [phone] Folate, Serum 13.0 ng/mL Normal 2 Laboratory test 06/30/2019 [facility] Enhanced PDF PDF IMAGE finding [address] [place] [address] [id number] [phone] Lipid Panel 04/18/2019 Cholesterol 201 mg/dL High [...] the estimation of LDL-C. Peterson SS et al.ANAI.2013;310(19):1638-7592 Desirable range <100 mg/dL for primary prevention; <70 mg/dL for patients with CHD or diabetic patients with >or= 2 CHD risk factors. 5 For patients with diabetes plus 1 major ASCVD risk factor, treating to a non-HDL-C goal of <100 mg/dL (LDL-C of <70 mg/ dL) is considered a therapeutic option. Procedures Date Code Description Status 07/05/2019 83558 Non-Invcorrotid/Comp /Bilat Study Completed 07/04/2019 95661 Echocardiography Completed 06/30/2019 35441 Spirometry Graphic Record/Max Voluntary Vent Completed 06/30/2019 63333 EKG-Tracing & Report Completed 06/29/2019 59609 PVR-Atrerial Study Completed 06/29/2019 79553 Holter Monitor Office Completed 01/11/2015 [id number] Bone Mineral Density Test Completed 01/09/2011 61323097 Colonoscopy Completed Medical Devices Description No Information [...] 06/30/2019 J44.9 Chronic obstructive pulmonary disease, unspecified Hudson Hyde 06/30/2019 R05 Cough Hudson Hyde 06/29/2019 R00.2 Palpitations Hudson Hyde 06/29/2019 I73.9 Peripheral vascular disease, unspecified Gauss, Hudson 06/08/2019 M79.10 Myalgia, unspecified site Gauss, Hudson [...] Hudson 05/10/2019 M79.10 Myalgia, unspecified site Gauss, [facility] 05/10/2019 T78.40xD Allergy, unspecified, subsequent encounter Gauss, [facility] 05/10/2019 Z23 Encounter for immunization Gauss, [facility] 01/20/2019 E78.5 Hyperlipidemia, unspecified Gauss, Hudson 01/20/2019 G47.30 Sleep apnea, unspecified Gauss, Hudson [...] Hudson structure, unspecified site Plan of Treatment Future Appointment(s):07/14/2019 10:15 am - [facility] [id number] - Elizabet Hyde79.10 Myalgia, unspecified siteE78.5 Hyperlipidemia, [...] including dietary guidelines and materials provided.G47.30 Sleep apnea, unspecifiedComments:Discussed role of obesity and [...] to medication reviewed.R73.01 Impaired fasting glucoseComments:diet and nttqhkpL73.0 Benign prostatic hyperplasia without lower urinary tract symptomsComments:yearly digital examyearly psaSymptoms and signs reviewed and therapy such as medication , vitamins, diet supplements and their risks and [...] follow up symptomatically and with OCTAVIA yearly bjgmkejyS15.9 Vitamin D deficiency, apkdqlgfrweD20.09 Other obesity due to excess caloriesComments:Discussed health effects of obesity and healthy diet choices. Effect on other diseases and interaction of dietary factors stressed. Weight loss options discussed and information on community resources,various weight loss strategies and popular diets reviewed.I34.0 Nonrheumatic mitral (valve) insufficiencyComments:Issues of symptoms and aggravating lifestyle factors [...] bearing role discussed. Necessity of compliance with medications/side effects and importance of monitoring for further treatment with DXA addressed. Vertebral Fracture Assessment reviewed Discussed recommended goal of 1200-1500MG Calcium and 400 IU Vit D with supplemental MG intake and dietary and supplemental ways to achieve goals. Fall prevention and impact lowering discussed and gait stability issues addressed. Regular exercise as tolerated with weight bearing role discussed. Necessity of compliance with medications/side effects and importance of monitoring for further treatment with DXA addressed. Vertebral Fracture Assessment uupuwrzfN14.90 Unspecified osteoarthritis, unspecified siteComments:Discussed treatment strategies including [...]
--- OUTSIDE RECORDS SUMMARY | 2019-08-05 15:11 | XMS REPORT | Continuity of Care Document ---
:1945 External Reference #:[id number] Author Name Hudson yHde (transmitted by agent of provider Trang Antunez) Address [address] [place] [address] Problems Active Problems Provider Date Disorder of [...] M85.80 Hudson Hyde 04/14/2017 Potency a day 914-617ni-Hrnj Tablets Co Q10 Maximum 1 PO Q Day 14caps Hudson Hyde 04/14/2017 Strength 200mg Capsules Multivitamins OTC Hudson Hyde 10/25/2013 Capsules Zostavax injection as 1units Merry Hyde, 10/21/2012 ordered M.D. 40581Qms/0.65ML Solution Rec Immunizations CPT Code Status Date Vaccine Lot # Q2035 Given 05/10/2019 Influenza Virus (Quadrivalent)Splitvirus 3 [id number] Years Of Age And Older 98[address] Given 05/10/2019 Influenza Virus Vaccine, Quadrivalent, Split, Preservative Free Q2037 Given 06/02/2016 Influenza Vaccine (Fluvirin) 3 Years Of Age Or [id number] Older 56864 Given 08/14/2015 Pneumococcal Conjugate Vaccine 13 Valent For [id number] Intramuscular Use 34454 Given 10/21/2012 Zostavax Q2037 Given 05/24/2012 Influenza Vaccine (Fluvirin) 3 Years Of Age Or [id number] Older Q2036 Given 05/27/2011 Flulaval [id number] Q2036 Given 09/18/2010 Flulaval [id number] 82483 Given 09/18/2010 Pneumovax Polyvalent Inj Im [id number] 46412 Given 09/11/2010 Tetanus,Diphtheria,Adut/Adol Pertussis [id number] Vital Signs Date Vital Result Comment 06/08/2019 [...] H/L Range Note TSH+Free T4 06/30/2019 [facility] TSH 1.71 mIU/L Normal 0.40-4.[address] [place] [address] [phone] T4, Free 1.1 ng/dL Normal 0.8-1.8 Laboratory test 06/30/2019 [facility] PSA, Total 1.7 ng/mL Normal < Or = [address] [place] [address] [phone] Vitamin 06/30/2019 [facility] Vitamin B12 574 pg/mL Normal 200- 1100 B12/Folate, [address] [place] [address] [phone] Folate, Serum 13.0 ng/mL Normal 2 Laboratory test 06/30/2019 [facility] Enhanced PDF PDF IMAGE finding [address] [place] [address] [id number] [phone] Lipid Panel 04/18/2019 Cholesterol 201 mg/dL High [...] the estimation of LDL-C. Peterson SS et al.ANAI.2013;310(19):5227-3517 Desirable range <100 mg/dL for primary prevention; <70 mg/dL for patients with CHD or diabetic patients with >or= 2 CHD risk factors. 5 For patients with diabetes plus 1 major ASCVD risk factor, treating to a non-HDL-C goal of <100 mg/dL (LDL-C of <70 mg/ dL) is considered a therapeutic option. Procedures Date Code Description Status 07/05/2019 62591 Non-Invcorrotid/Comp /Bilat Study Completed 07/04/2019 30612 Echocardiography Completed 06/30/2019 48206 Spirometry Graphic Record/Max Voluntary Vent Completed 06/30/2019 81127 EKG-Tracing & Report Completed 06/29/2019 73549 PVR-Atrerial Study Completed 06/29/2019 27232 Holter Monitor Office Completed 01/11/2015 [id number] Bone Mineral Density Test Completed 01/09/2011 32264048 Colonoscopy Completed Medical Devices Description No Information [...] Hudson 05/10/2019 M79.10 Myalgia, unspecified site Gauss, [facility] 05/10/2019 T78.40xD Allergy, unspecified, subsequent encounter Gauss, [facility] 05/10/2019 Z23 Encounter for immunization Gauss, [facility] 01/20/2019 E78.5 Hyperlipidemia, unspecified Gauss, [...] 10:15 am - [facility] Hyde at [facility] [id number] - Elizabet Hyde79.10 Myalgia, unspecified siteE78.5 Hyperlipidemia, [...] to medication reviewed.R73.01 Impaired fasting glucoseComments:diet and jggdclsI20.0 Benign prostatic hyperplasia without lower urinary tract [...] follow up symptomatically and with OCTAVIA yearly anmcypjxW83.9 Vitamin D deficiency, fjunqpbopnxI56.09 Other obesity due to excess caloriesComments:Discussed health [...] treatment with DXA addressed. Vertebral Fracture Assessment qqoqmvftO16.90 Unspecified osteoarthritis, unspecified siteComments:Discussed treatment strategies including [...]
== END 2019-08-05 14:58 | disposition home health service (06) ==
LOC: UCCORT 14:27
DX: R10.32 Left lower quadrant pain (principal); Z87.891 Personal history of nicotine dependence; Z86.718 Personal history of other venous thrombosis and embolism; Z79.82 Long term (current) use of aspirin
CPT/HCPCS: 99212; G0463

== ENCOUNTER 2019-08-05 15:57 | Emergency (ER) | payer MEDICARE ==
[2019-08-05 16:04] VITALS: BP 176/108
== END 2019-08-05 17:42 | disposition left against medical advice (07) ==
LOC: ED 15:57
DX: R10.9 Unspecified abdominal pain (principal); R11.0 Nausea; Z53.21 Procedure and treatment not carried out due to patient leaving prior to being seen by health care provider
CPT/HCPCS: 99282